=== PATIENT | female | born 1960 | race Caucasian/White ===

== ENCOUNTER → 2024-01-27 09:55 | Outpatient (CLI) | payer OTHER, SELFPAY ==
--- NOTE | 2024-01-27 09:57 | DI.RAD.S_ITS ---
PROCEDURE: XR DEXA AXIAL SKELETON INDICATIONS: Asymptomatic menopausal state COMPARISON: None. FINDINGS: Lumbar Spine: Bone mineral density 1.132 g/cm2, T score 0.8, normal. Left femoral neck: Bone mineral density 0.687 g/cm2, T score -1.5, osteopenia. Left hip: Bone mineral density 0.950 g/cm2, T score 0.1, normal. Right femoral neck: Bone mineral density 0.731 g/cm2, T score -1.1, osteopenia. Right hip: Bone mineral density 0.999 g/cm2, T score 0.5, normal. Fracture Risk Calculation (when applicable): 10-year fracture risk of a major osteoporotic fracture 15-16% and of a hip fracture 0.6-0.8%. (T score greater or equal to -1.0 to: NORMAL) (T score from -1.1 to -2.4: OSTEOPENIA) (T score less than or equal to -2.5: OSTEOPOROSIS) IMPRESSION: 1. Based on WHO criteria, the patient is osteopenia and increased risk for osteoporotic fractures. Follow-up guidelines as follows: Osteoporosis: Consider a repeat DEXA and Vertebral Fracture Assessment (VFA) exam in 2 years or sooner if medically necessary, to reassess this patient's status. Osteopenia: Consider a repeat DEXA in 2-3 years to reassess this patient's status, or if there is a new clinical indication. Normal: Consider a repeat DEXA in 5 years or sooner, or if there is a new clinical indication. Dictated by: Irvin Moreno M.D. on 01/27/2024 at 10:45 Approved by: Irvin Moreno M.D. on 01/27/2024 at 10:48
== END ==
LOC: RAD 09:56
PROVIDERS: PCP Physician Assistant Medical; Referring Provider Physician Assistant Medical; Visit Provider Physician Assistant Medical
DX: M85.852 Other specified disorders of bone density and structure, left thigh (principal); M85.851 Other specified disorders of bone density and structure, right thigh
CPT/HCPCS: 77080

== ENCOUNTER 2024-05-08 09:42 | Day surgery (SDC) | payer OTHER, SELFPAY ==
[2024-05-08] MEDS: LACTATED RINGERS 1,000 ML 150 ML IV (09:52)
[2024-05-08 10:01] VITALS: BP 157/82; PULSE 56; RESP 18; TEMP 36.7; O2SAT 95
--- NOTE | 2024-05-08 10:17 | PM.HP.1 ---
History of Present Illness History of Present Illness Date Patient Seen: 05/08/24 Time Patient Seen: 10:18 Chief complaint: Colonoscopy Narrative: 64-year-old woman here for screening colonoscopy. Last colonoscopy 2017, personal history of colonic polyps. Strong family history of colon cancer in second-degree family members. [facility] Social History Smoking Status: Former smoker alcohol intake: former Meds Home Medications and Allergies Home Medications Medication Instructions Recorded Confirmed Type albuterol sulfate 90 mcg/actuation 1 puff INH PRN PRN asthma ##0 08/23/17 05/08/24 History aerosol inhaler (Ventolin HFA) losartan 50 mg-hydrochlorothiazide 0.5 tab PO QDAY ##0 08/23/17 05/08/24 History 12.5 mg tablet (Hyzaar) propranolol 10 mg tablet 20 mg PO DAILY ##0 08/23/17 05/08/24 History levetiracetam 500 mg tablet 500 mg PO BID 05/08/24 05/08/24 History Allergies Allergy/AdvReac Type Severity Reaction Status Date / Time latex [LATEX] AdvReac Intermediate RASH, ITCHY Verified 05/08/24 09:58 Exam Vital Signs (past 8 hours): - 05/08/24 10:01 Temperature 98.0 F Pulse Rate 56 L Respiratory Rate 18 Blood Pressure 157/82 H Pulse Oximetry 95 Oxygen Delivery Method Room Air Oxygen Delivery Method Room Air Narrative Exam Narrative: General adult woman alert oriented no acute distress Chest nonlabored respiration Extremities warm well perfused Assessment & Plan Assessment & Plan narrative: The patient requires colorectal screening and colonoscopy is recommended. Technical details were discussed. Risks, benefits, alternatives explained. Risks including but not limited to myocardial infarction, aspiration, bleeding, pain, missed lesion, incomplete examination, need for further radiographic studies, intestinal injury, and need for major abdominal surgery were discussed. All questions were answered to their satisfaction, and they are in agreement with this plan. Time-Based Coding :: [TOTAL MINUTES] spent with patient and on the chart (including review of chart, obtaining history, exam, reviewing outside data, placing orders, documenting exam and treatment plan, and counseling patient) on [DATE].
[2024-05-08 11:05] VITALS: BP 132/80; PULSE 66; RESP 19; TEMP 36.2; O2SAT 99
[2024-05-08 11:10] VITALS: BP 146/82; PULSE 61; RESP 17; O2SAT 96
--- NOTE | 2024-05-08 11:10 | P.OP.COLON_ITS ---
Operative Date/Time/Diagnoses Date of procedure: 05/08/24 Time of procedure: 11:10 Pre-op diagnosis: Family history of colon cancer, personal history of colonic polyps Post-op diagnosis: same Procedure & Clinicians Study performed: Screening colonoscopy Same procedure as scheduled: Yes Indications: Family history of colon cancer in second-degree relatives Personal history of colonic polyps Surgeon: Tommy Castrejon Procedure Notes Procedure in detail: The history and physical was performed/updated and the patient is ASA class is 2. The procedure was discussed in detail with the patient. Potential risks complications including infection, bleeding, missed diagnosis, perforation, need for surgery, and were explained. Their questions were answered and informed consent was obtained. Patient was brought to the procedure room and placed standard monitoring equipment. The patient's vital signs were monitored continuously throughout the entire procedure. Prior to starting time-out was performed. The patient was placed in the left lateral recumbent position. Procedural sedation was administered by anesthesia. Examination began with a thorough inspection of the perianal area there was no evidence of fissures, fistulae, external hemorrhoids or cutaneous malignancy. The colonoscopy scope was then placed into the anal canal and was advanced to the cecum, which was identified by the ileocecal valve, the appendiceal orifice and the confluence of the taenia. The scope was then slowly withdrawn examining colon thoroughly in all directions, irrigating it of any residual stool. The scope was retroflexed within the rectum The patient tolerated the procedure well. They will be discharged once criteria are met. The prep was of fair quality. The withdrawl time was 6 minutes. FINDINGS * No mass or polyps * Moderate diverticulosis * Internal hemorrhoids Specimen(s): none sent Impression: Diverticulosis Internal hemorrhoids Post-procedure Recommendations: Colonoscopy in 5 years (Family history and history of polyps) Disposition: same day surgery
[2024-05-08 11:18] VITALS: BP 136/78; PULSE 59; RESP 15; O2SAT 99
== END 2024-05-08 11:33 | disposition home or self-care (01) ==
PROVIDERS: PCP Physician Assistant Medical; Referring Provider Surgery; Visit Provider Surgery
PROC: 0DJD8ZZ Inspection of Lower Intestinal Tract, Via Natural or Artificial Opening Endoscopic (ICD-10-PCS; CPT 45378; principal; 2024-05-08 10:30)
DX: Z12.11 Encounter for screening for malignant neoplasm of colon (principal); Z80.0 Family history of malignant neoplasm of digestive organs; Z86.010 Personal history of colon polyps; K57.30 Diverticulosis of large intestine without perforation or abscess without bleeding; K64.8 Other hemorrhoids
CPT/HCPCS: 45378